=== PATIENT | female | born 1935 | race Caucasian/White ===

== ENCOUNTER → 2018-10-26 | Outpatient (CLI) | payer MEDICARE ==
--- NOTE | 2018-10-27 19:07 | XCELERA REPORT ---
[address] [address] Lower Extremity Arterial Evaluation Name: NELL RAJPUT Age: 82 yrs Gender: Female : 1935 Patient Status: Outpatient Patient Location: Study Date: 10/26/2018 08:57 AM Procedure: A color flow and duplex scan of the lower extremity arteries was performed bilaterally with velocity and waveform anaylsis. Ankle brachial indicies performed. Reason For Study: LT CALF ULCER Ordering Physician: LESLI PRESTON Performed By: González Crowell Measurements and Calculations Right Left AIRCRAFT MAINTENANCE ENGINEER PSV 145.8 180.7 cm/sec Prox PFA PSV -110.0 -149.3cm/sec Prox SFA PSV 126.4 155.4 cm/sec Mid SFA PSV -100.6 -108.9cm/sec Dist SFA PSV -86.6 -110.6cm/sec Prox Pop A PSV 85.5 84.3 cm/sec Mid DIANA PSV 64.6 cm/sec Dist DIANA PSV 34.9 cm/sec Mid PAYROLL REPRESENTATIVE PSV 30.6 cm/sec Dist PAYROLL REPRESENTATIVE PSV 46.0 cm/sec Wang Pedis PSV 25.3 15.3 cm/sec Right Side Arterial Evaluation Normal velocity and triphasic waveforms noted from the Common Femoral artery to the Posterior Tibial . Biphasic with low velocity in the Anterior Tibial and Dorsalis Pedis arteries,reversal of flow in distal Dorsalis Pedis. Ankle Brachial index 1.07. Left Side Arterial Evaluation Normal velocity and triphasic waveforms noted from the Common Femoral artery to the Anterior Tibial . Biphasic with low velocity in the Posterior Tibial and Dorsalis Pedis arteries,reversal of flow in distal Dorsalis Pedis. Ankle Brachial index 1.11. Interpretation Summary Mild hemodynamically significant lesions in the bilateral lower extremities, on duplex imaging, at rest. Arterial compromise moderated by sustained flow in at least one infrageniculate vessel on each side. FELTON's are normal, somewhat discordant with the duplex findings. : LESLI PRESTON > Lesli Preston
== END ==
LOC: SP 08:46
PROVIDERS: ATTEND Surgery
DX: L97.222 Non-pressure chronic ulcer of left calf with fat layer exposed (principal)
CPT/HCPCS: 93922; 93925; 93970

== ENCOUNTER 2018-11-29 05:29 | Day surgery (SDC) | payer MEDICARE ==
[2018-11-23 11:00] LABS: HEMATOCRIT 34.7 % (36.0-47.0); HEMOGLOBIN 11.5 g/dL (12.0-15.5); MEAN CORPUSCULAR HEMOGLOBIN 25.5 pg (27.0-33.4); MEAN CORPUSCULAR VOLUME 77 fl (80-97); PLATELET COUNT 243 10^3/uL (150-450); RED BLOOD COUNT 4.49 10^6/uL (3.72-5.28); RED CELL DISTRIBUTION WIDTH 17.2 % (11.5-14.0); WHITE BLOOD COUNT 3.2 10^3/uL (4.0-10.5)
[2018-11-23 11:28] LABS: ANION GAP 11 (5-19); BLOOD UREA NITROGEN 18 mg/dL (7-20); CALCIUM 9.7 mg/dL (8.4-10.2); CARBON DIOXIDE 29 mmol/L (22-30); CHLORIDE 100 mmol/L (98-107); GLUCOSE 91 mg/dL (75-110); POTASSIUM 4.3 mmol/L (3.6-5.0)
--- NOTE | 2018-11-23 12:18 | EKG REPORT ---
SEVERITY:- ABNORMAL ECG - SINUS TACHYCARDIA RIGHT BUNDLE BRANCH BLOCK NONSPECIFIC ST-T CHANGES- INFERIORLATERAL LEADS : Confirmed by: Alan Arreguin MD 23-Nov-2018 12:16:59
[~2018-11-29 05:29] MED LIST: CEFAZOLIN 1 GM/D5W RTU 1 GM/50 ML RTUPB IV ONE; CEFAZOLIN 1 GM/D5W RTU 1 GM/50 ML RTUPB IV PRN; LACTATED RINGERS 1000 ML IV PRN; LIDOCAINE 0.5% INJ-PF (5 MG/ML) 50 ML SDV SUBCUT PRN
[2018-11-29] MEDS ORDERED: LIDOCAINE 2% INJ (20 MG/ML) 20 ML MDV ONE (06:43)
[2018-11-29] MEDS ORDERED: MIDAZOLAM 2 MG/2 ML INJ ONE (06:43)
[2018-11-29] MEDS ORDERED: PROPOFOL INJ 200 MG/20 ML VIAL IV ONE (06:43)
[2018-11-29] MEDS ORDERED: FENTANYL CITRATE INJ/PF 100 MCG/2 ML AMPUL ONE (06:43)
[2018-11-29] MEDS ORDERED: BACITRACIN INJ 50,000 UNIT VIAL ONE (07:07)
[2018-11-29] MEDS ORDERED: BUPIVACAINE HCL 0.25 % INJ/PF (2.5 MG/1 ML) 30 ML VIAL ONE (07:07)
[2018-11-29] MEDS ORDERED: LIDOCAINE 0.5% INJ-PF (5 MG/ML) 50 ML SDV ONE (07:07)
[2018-11-29] MEDS ORDERED: FENTANYL CITRATE INJ/PF 100 MCG/2 ML AMPUL IV PRN ×3 (07:34)
[2018-11-29] MEDS ORDERED: DIPHENHYDRAMINE HCL 50 MG/ML VIAL IV PRN (07:34)
--- NOTE | 2018-11-29 07:50 | PDOC H&P ---
General Chief Complaint: Patient in for excision of skin cancers of the right side of the face and the left leg. - Current Medications/Allergies Home Medications: Amoxicillin 500 mg PO PRN 11/23/18 Aspirin [Aspir-Low] 81 mg PO DAILY 11/23/18 Donepezil HCl 10 mg PO HSP PRN 11/23/18 Esomeprazole Mag Trihydrate [Nexium] 40 mg PO BID 11/23/18 Fluoxetine HCl 40 mg PO DAILY 11/23/18 Gabapentin 600 mg PO BID 11/23/18 Ketoconazole TOP 11/23/18 Loratadine/Pseudoephedrine [Claritin-D 24 Hour Tablet] 1 each PO DAILY 11/23/18 Lorazepam [Ativan] 1 mg PO HSP PRN 11/23/18 Memantine HCl 5 mg PO BID 11/23/18 Oxybutynin Chloride [Ditropan Xl] 10 mg PO DAILY 11/23/18 Primidone [Mysoline] 50 mg PO HSP PRN 11/23/18 Quetiapine Fumarate [Seroquel] 25 mg PO HSP PRN 11/23/18 Valsartan/Hydrochlorothiazide [Valsartan-Hctz 160-12.5 mg Tab] 1 each PO DAILY 11/23/18 Zinc Oxide [Zinc Oxide 20% Ointment 28.35 gm] 1 applic TP DAILY 11/23/18 Allergies/Adverse Reactions: alendronate sodium [From Fosamax Plus D] Adverse Reaction (Verified 11/29/18 06:21) celecoxib [From Celebrex] Adverse Reaction (Verified 11/29/18 06:21) cholecalciferol (vitamin D3) [From Fosamax Plus D] Adverse Reaction (Verified 11/29/18 06:21) ciprofloxacin Adverse Reaction (Verified 11/29/18 06:21) hydrocodone Adverse Reaction (Verified 11/29/18 06:21) lubiprostone [From Amitiza] Adverse Reaction (Verified 11/29/18 06:21) methylprednisolone [From Medrol] Adverse Reaction (Verified 11/29/18 06:21) risedronate sodium [From Actonel] Adverse Reaction (Verified 11/29/18 06:21) trazodone Adverse Reaction (Verified 11/29/18 06:21) Past Medical History Cardiac Medical History: Reports: Hypertension Denies: Coronary Artery Disease, Myocardial Infarction Pulmonary Medical History: Denies: Asthma, Bronchitis, Chronic Obstructive Pulmonary Disease (COPD), Pneumonia Neurological Medical History: Denies: Seizures Musculoskeltal Medical History: Denies: Arthritis Hematology: Reports: Anemia Family History Parental Family History Reviewed: No Children Family History Reviewed: No Sibling(s) Family History Reviewed.: No Social History Smoking Status: Never Smoker Physical Exam Vital Signs: Temp Pulse Resp BP Pulse Ox 98.2 F 59 L 18 145/62 H 96 11/29/18 05:30 11/29/18 05:30 11/29/18 05:30 11/29/18 05:30 11/29/18 05:30 Intake & Output 11/28/18 11/29/18 11/30/18 06:59 06:59 06:59 Intake Total 0 Balance 0 Weight 89.81 kg Additional comments: Constitutional: Well-developed well-nourished lady. No apparent acute distress. Eyes: Mucous membranes pink and moist, pupils equal and reactive to light. Conjunctiva normal. Cornea normal. ENT: Hearing grossly normal. External pinna normal to inspection. Teeth mostly intact. Tongue normal to inspection. Cardiac: Heart sounds 1 and 2 normal, no murmurs. Respiratory: breath sounds are present bilaterally, normal. Normal respiratory effort. Skin: Significant for well-healed scar of excised skin cancer of right cheek, 3 cm long, and also active ulcer biopsy-proven skin cancer left leg, about 2 cm in diameter. Psychiatric: Judgment, memory, insight seem normal. Mood is pleasant and appropriate. Extremities: Upper extremities show normal range of movement. Pulses present noted to the radial arteries. Capillary refill normal. No cyanosis noted. No muscle wasting noted. Lower extremities show normal range of movement. Pulses present noted to the dorsalis pedis artery. Capillary refill normal. No cyanosis noted. No muscle wasting noted. Neurovascular: No apparent tremors, gait normal. Sensation grossly intact. Hearing grossly normal. Vison grossly intact. Impression/Plan Plan: The proposed procedure is reexcision of the right cheek cancer excision site with primary closure. Also excision of the biopsy-proven skin cancer of the left leg with skin graft. The procedure, its risks, benefits, expected outcomes alternatives are understood by the patient and her family. They wish to proceed.
[2018-11-29] MEDS ORDERED: LIDOCAINE 0.5% INJ-PF (5 MG/ML) 50 ML SDV INJ ONE (08:16)
[2018-11-29] MEDS ORDERED: BUPIVACAINE HCL 0.25 % INJ/PF (2.5 MG/1 ML) 30 ML VIAL INJ ONE (08:16)
--- NOTE | 2018-11-29 09:47 | Discharge Summary ---
Discharge Summary (SDC) - Discharge Final Diagnosis: #1 multiple areas of skin cancer, squamous cell, right cheek, left leg. 2. Hypertension Date of Surgery: 11/29/18 Discharge Date: 11/29/18 Condition: Good Treatment or Instructions: Discharge home [after recovery per ASU criteria]. Diet , as tolerated, when fully awake advance as tolerated. Activities within moderation encouraged. Follow up in wound clinic by appointment on Wednesday of this week. Call for appointment. Leave wounds [covered], [keep clean and dry, until office visit in 1 week]. Hold of on school/work [until evaluation in office].\ Meds per med rec. Percocet. May shower [in 48 hrs], [try to keep operated area as dry as possible]. Prescriptions: Oxycodone HCl/Acetaminophen [Percocet 5-325 mg Tablet] 1 tab PO ASDIR PRN #9 tab PRN Reason: Referrals: KEELY DUCKWORTH MD [Primary Care Provider] - Discharge Diet: As Tolerated Respiratory Treatments at Home: Deep Breathing/Coughing Discharge Activity: Activity As Tolerated Report the Following to Your Physician Immediately: Shortness of Breath, Unusual Bleeding
--- NOTE | 2018-11-29 09:59 | Operative Report ---
Operative Report DATE OF SURGERY: 11/29/18 PREOPERATIVE DIAGNOSIS: #1 multiple areas of skin cancer, squamous cell, right cheek, left leg. 2. Hypertension POSTOPERATIVE DIAGNOSIS: #1 multiple areas of skin cancer, squamous cell, right cheek, left leg. 2. Hypertension OPERATION: 1. Reexcision of the right cheek squamous cell cancer excision site. 2. Excision of left leg squamous cell cancer. 3. Full-thickness skin graft to left leg excision site from abdomen. SURGEON: LESLI MALLOY DIRECTOR OF CLINICAL SERVICES: None. ANESTHESIA: LMAC TISSUE REMOVED OR ALTERED: 1. Reexcision site squamous cell cancer right cheek. 2. Excision site left leg squamous cell cancer. COMPLICATIONS: None. ESTIMATED BLOOD LOSS: 10 mL. INTRAOPERATIVE FINDINGS: Of normal-appearing skin of the abdominal wall. Scars of previous surgery noted. Of excision site right cheek, no obvious recurrence. Excised with a 0.5 cm margin with the exception of the superior 1 cm, which was left undisturbed. Of an approximately 2 cm diameter ulcer lower third of left leg medially excised with a margin of about 1 cm visual. PROCEDURE: PROCEDURE: The right cheek [left leg and abdomen] were prepared with [Betadine] and draped out with sterile linen. After the"universal time-out", in which it was confirmed that the patient [did receive antibiotic], the procedure commenced. The patient was appropriately anesthetized. Local anesthesia infiltrated in the abdominal donor site which had been marked to the 4 cm estimated for adequate coverage of the left leg excision site. First the skin which had been painted with Betadine, was cleaned with saline solution so that no Betadine remained. An oval incision was sketched in the crease just below the abdominal pannus. This was centered on the midline and [measured 4 x 4 cm], the incision now made through the epidermis and dermis. [Working from the right side] the skin donor was excised with a 15 blade blade scalpel. This was done in the deep dermal layer, the donor was now put aside in a saline moistened gauze. Underlying fatty tissue, at the donor site, was now excised using cautery in order to facilitate closure. The donor site was now closed after obtaining hemostasis. Closure was done in layers, the deeper layers closed with interrupted 3-0 PDS and the skin closed with a continuous subcuticular suture of 4-0 Monocryl, reinforced with Steri-Strips over benzoin . The right cheek area with now approach. An incision was scheduled with a visual margin of 0.5 cm around the previous excision site, excluding the superior 1 cm of the prior scar. Local anesthesia infiltrated in the skin and subcutaneous tissues. Incision made in the marked area and dissection proceeded down to the subcutaneous tissue with complete excision. The specimen was marked the inferior margin with a long 2-0 silk suture, the posterior margin with a short stitch of 2-0 silk. [The leg ulcer was noted, and incision sketched aiming for margin of at least 1 cm. Local anesthesia was generously infiltrated. Incision made just outside of the scheduled line dissecting into the deep subcutaneous tissues. Dissecting from medial to lateral the specimen excised. Specimen was now marked, a long 2- 0 silk stitch in the inferior margin and a short silk stitch in the medial posterior margin. The specimen was sent to pathology for margins. Procedure continued, eventually archived call with the reassuring information that the margins appeared clear on initial evaluation. The donor was now defatted using iris scissors. It was thinned out somewhat. Cleaned with saline and then placed on the recipient site. Several incisions were made in the donor using a 15 blade scalpel. The donor was now sutured in place using 4 sutures of 3-0 PDS placed in the 4 quadrants. Each was left long for subsequent tying. Interval interrupted sutures of 3-0 PDS were utilized in order to anchor the graft. Once this was done satisfactorily an Adaptic gauze was placed on the graft followed by a gauze lightly moistened with saline the 4 sutures previously left long were now tied over this so as to secure nice anchoring and pressure on the graft. 4 x 4's and Kerlix were applied and this portion of the procedure concluded.
[2018-11-29] MEDS ORDERED: OXYCODONE-ACETAMINOPHEN 5-325 MG TABLET ONE (10:50)
[2018-11-29] MEDS ORDERED: OXYCODONE-ACETAMINOPHEN 5-325 MG TABLET PO ONE (11:00)
[2018-11-29 12:04] VITALS: BP 125/61
== END 2018-11-29 11:50 | disposition home or self-care (01) ==
LOC: OROUT 05:29
PROVIDERS: ATTEND Surgery
DX: C44.729 Squamous cell carcinoma of skin of left lower limb, including hip (principal); C44.329 Squamous cell carcinoma of skin of other parts of face; D64.9 Anemia, unspecified; E66.9 Obesity, unspecified; I10 Essential (primary) hypertension; Z79.82 Long term (current) use of aspirin; Z79.899 Other long term (current) drug therapy
CPT/HCPCS: 93005; 36415 ×2; 84132; 85027; 80048; 88342 ×2; 88341 ×2; 88305 ×2; 88331 ×2; 88332 ×2; 93010; 11601; 15220; 11640; J2250; J3490 ×4; J0690; J3010; A9270; J2704